=== PATIENT | male | born 1970 ===

== ENCOUNTER 2022-04-05 08:49 | Emergency (ER) | payer SELFPAY ==
[2022-04-05 08:58] VITALS: BP 153/98
--- NOTE | 2022-04-05 09:37 | XRay Report ---
CHEST 2 VIEWS INDICATION / CLINICAL INFORMATION: Chest Pain. COMPARISON: None available. FINDINGS: SUPPORT DEVICES: None. HEART / MEDIASTINUM: The heart size and pulmonary vasculature are normal. The aorta is normal in marcelle dago. LUNGS / PLEURA: No significant pulmonary or pleural abnormality. No pneumothorax. ADDITIONAL FINDINGS: No significant additional findings. IMPRESSION: No acute findings. Signer Name: Michel Do MD Signed: 04/05/2022 9:32 AM Workstation Name: [email or web address]
[2022-04-05 10:15] LABS: Bilirubin,Urine Negative (Negative); Blood,Urine Negative (Negative); Color,Urine Colorless (Yellow)
[2022-04-05 10:16] LABS: Protein,Urine <15 mg/dL mg/dL (Negative); Urobilinogen,Urine < 2.0 mg/dL (<2.0)
[2022-04-05 11:07] LABS: Basophils # (Auto) 0.1 K/mm3 (0.0-0.1); Basophils % (Auto) 1.1 % (0.0-1.8); Eosinophils # (Auto) 0.2 K/mm3 (0.0-0.4); Eosinophils % (Auto) 3.5 % (0.0-4.3); Hematocrit 39.9 % (35.5-45.6); Hemoglobin 13.6 gm/dl (11.8-15.2); Lymphocytes # (Auto) 1.9 K/mm3 (1.2-5.4); Lymphocytes % (Auto) 42.2 % (13.4-35.0); Mean Corpuscular HGB Conc 34 % (32-34); Mean Corpuscular Volume 92 fl (84-94); Monocytes # (Auto) 0.3 K/mm3 (0.0-0.8); Monocytes % (Auto) 7.5 % (0.0-7.3); Platelet Count 363 K/mm3 (140-440); Red Blood Count 4.32 M/mm3 (3.65-5.03); Red Cell Distribution Width 13.6 % (13.2-15.2)
[2022-04-05 11:17] LABS: Alanine Aminotransferase 27 units/L (7-56); Albumin 4.3 g/dL (3.9-5); BUN/Creatinine Ratio 9; Blood Urea Nitrogen 8 mg/dL (9-20); Calcium 9.3 mg/dL (8.4-10.2); Hemolysis Index 27
--- NOTE | 2022-04-06 09:38 | Electrocardiograph Report ---
[facility] Test Date: 2022-04-05 Test Time: 09:09:27 Pat Name: RIANA PERALES Department: Room: Gender: M Program Director/Air Personality: GP : 1970 Requested By: ED DOC Order Number: [id number] Reading MD: Porfirio Gamble Measurements Intervals [place] Rate: 67 P: 58 [place]: 120 QRS: -1 QRSD: 75 T: 0 QT: 434 QTc: 458 Interpretive Statements Sinus rhythm No previous ECG available for comparison Electronically Signed On 04-06-2022 9:38:21 EDT by Porfirio Gamble
== END 2022-04-05 23:00 | disposition left against medical advice (07) ==
LOC: ED 08:49
DX: R07.9 Chest pain, unspecified (principal); Z53.21 Procedure and treatment not carried out due to patient leaving prior to being seen by health care provider
CPT/HCPCS: 36415; 71046; 80053; 81001; 84484; 85025; 93005